=== PATIENT | female | born 1990 | race Hispanic/Latino ===

== ENCOUNTER 2022-06-08 15:29 | Emergency (ER) | payer OTHER ==
[2022-06-08] MEDS ORDERED: Acetaminophen 500 MG TAB ONE (16:22)
== END 2022-06-08 16:28 | disposition home or self-care (01) ==
LOC: ERS 15:29
DX: S06.0X0A Concussion without loss of consciousness, initial encounter (principal); S00.03XA Contusion of scalp, initial encounter; W20.8XXA Other cause of strike by thrown, projected or falling object, initial encounter; Y92.69 Other specified industrial and construction area as the place of occurrence of the external cause
CPT/HCPCS: 99282